=== PATIENT | male | born 1980 | race Caucasian/White ===

== ENCOUNTER 2019-04-30 18:45 | Emergency (ER) | payer MEDICAID ==
[~2019-04-30] VITALS: Ht 167.6 cm; Wt 81.6 kg
[2019-04-30 18:47] VITALS: BP_SYST 146
--- NOTE | 2019-04-30 19:18 | NUR ---
Patient to ER bed 07 to gown for evaluation. Side rails up. Report given to CARMELITA Kong
--- NOTE | 2019-04-30 20:00 | NUR ---
AWAKE, ALERT. KAZAKH SPEAKING. FRIEND INTERPRETING. FRIEND STATES PATIENT PLACED HIS HAND IN THE CAR DOOR SILL, AND CLOSED SHUT THE DOOR HIMSELF. HIS RIGHT 3RD FINGER PRESENTS WITH A LACERATION/ GUSH AT INNER UPPER THIRD OF FINER, NON-BLANCHABLE.
--- NOTE | 2019-04-30 20:04 | NUR ---
ER at bedside examining patient.
[2019-04-30] MEDS ORDERED: DIPH-TET-PERTUS Vaccine 0.5 ML VIAL (ADACEL) IM ONE (20:15)
[2019-04-30] MEDS ORDERED: LIDOCAINE 1% 10 MG/ML, 20 ML MDV IJ ONE (20:15)
[2019-04-30] MEDS ORDERED: BACITRACIN 1 GM OINT TP ONE (20:15)
--- NOTE | 2019-04-30 21:40 | NUR ---
DR CUMMINGS SUTURING WOUND.
[2019-04-30 22:20] VITALS: BP_SYST 146
--- NOTE | 2019-04-30 22:20 | NUR ---
Patient given written and verbal discharge instructions and verbalizes understanding. ER DR ZOILA KHAN discussed with patient the results and treatment provided. Patient in stable condition. ID arm band removed. Rx of KEFLEX TYLENOL WITH CODEINE given. Patient educated on pain management and to follow up with PMD. Pain Scale . Opportunity for questions provided and answered. Medication side effect fact sheet provided.
== END 2019-04-30 22:20 | disposition home or self-care (01) ==
LOC: SED 18:45
DX: S62.662A Nondisplaced fracture of distal phalanx of right middle finger, initial encounter for closed fracture (principal); S61.212A Laceration without foreign body of right middle finger without damage to nail, initial encounter; F17.210 Nicotine dependence, cigarettes, uncomplicated; W23.0XXA Caught, crushed, jammed, or pinched between moving objects, initial encounter; Y93.89 Activity, other specified; Y92.89 Other specified places as the place of occurrence of the external cause; Y99.8 Other external cause status
CPT/HCPCS: 12002; 73140; 90471; 90715; 99283; J2001